=== PATIENT | male | born 1945 | race Caucasian/White ===

== ENCOUNTER 2022-06-18 07:50 | Day surgery (SDC) | payer OTHER ==
[2022-06-15 14:28] VITALS: BMI 28.5
[~2022-06-18 07:50] MED LIST: LACTATED RINGERS 1,000 ML IV SCH
[2022-06-18] MEDS ORDERED: LACTATED RINGERS 1,000 ML IV ONE (08:07)
[2022-06-18 08:16] VITALS: TEMP 97.8
[2022-06-18] MEDS ORDERED: LIDOCAINE 2% INJ 20 MG/ML (2 ML VIAL) ONE (08:27)
[2022-06-18] MEDS ORDERED: PROPOFOL 10 MG/ML 20 ML VIAL IV ONE (08:27)
--- NOTE | 2022-06-18 08:43 | P.PCN ---
Date of Procedure: 06/18/22 Procedure(s) Performed: BRIEF HISTORY: Patient is a 77-year-old pleasant white a scheduled for an elective colonoscopy as a part of screening for colon cancer and family history of colon cancer. Father was diagnosed with colon cancer at age 40. PROCEDURE PERFORMED: Colonoscopy with biopsy. PREOPERATIVE DIAGNOSIS: Screening for colon cancer and family history of colon cancer with biopsy. IV sedation per Anesthesia. PROCEDURE: After informed consent was obtained, the patient, was brought into the endoscopy unit. IV sedation was administered by Anesthesia under continuous monitoring. Digital rectal examination was normal. Initially the Olympus CF-160 flexible video colonoscope was then inserted in the rectum, gradually advanced into the cecum without any difficulty. Careful examination was performed as the scope was gradually being withdrawn. Ileocecal valve and the appendiceal orifice were visualized and appeared normal. Prep was excellent. Mucosa of the cecum, ascending colon, transverse colon, appeared normal. The descending colon there was a 4 mm polyp removed by cold biopsy. Rest of the descending colon, sigmoid colon, and rectum appeared normal. In the proximal rectum there was another 5 mm polyp that was removed by cold biopsy. Retroflexion was performed in the rectum and no lesions were seen. The patient tolerated the procedure well. IMPRESSION: 4 mm descending colon polyp status post cold biopsy 5 mm proximal rectal polyp status post cold biopsy RECOMMENDATIONS: Findings of this examination were discussed with the patient as his family. He was advised to follow with the biopsy results. Recommend repeat colonoscopy in 5 years from now because of the strong family history of colon cancer.
[2022-06-18 09:04] VITALS: BP 110/71; PULSE 100; RESP 18
== END 2022-06-18 09:15 | disposition home or self-care (01) ==
LOC: ORWHC2ENDO 07:50
PROVIDERS: ATTEND Internal Medicine Gastroenterology
DX: Z12.11 Encounter for screening for malignant neoplasm of colon (principal); D12.4 Benign neoplasm of descending colon; K62.1 Rectal polyp; I10 Essential (primary) hypertension; E78.5 Hyperlipidemia, unspecified; F17.210 Nicotine dependence, cigarettes, uncomplicated; Z80.0 Family history of malignant neoplasm of digestive organs; Z88.0 Allergy status to penicillin; Z79.82 Long term (current) use of aspirin; Z79.899 Other long term (current) drug therapy; Z86.73 Personal history of transient ischemic attack (TIA), and cerebral infarction without residual deficits
CPT/HCPCS: 88305; 45380; J2704; J2001

== ENCOUNTER → 2022-11-19 | Outpatient (CLI) | payer OTHER ==
--- NOTE | 2022-11-19 09:09 | US ---
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 FINDINGS: EXAM MEASUREMENTS: Liver Length: 16.2 cm Gallbladder Wall: 0.2 cm CBD: 0.4 cm Right Kidney: 8.5 x 4.4 x 5.0 cm VETERANS SERVICE REPRESENTATIVE NOTES:bowel gas obscures imaging Pancreas: wnl Liver: wnl Gallbladder: fundal fold Evidence for sonographic Jordan's sign: no CBD: wnl Right Kidney: smaller in size IMPRESSION: Diminutive right kidney. Otherwise unremarkable study.
[2022-11-19 13:13] LABS: Basophils # (A) 0.07 X 10*3/uL (0.00-0.10); Basophils % (A) 0.9 %; Eosinophils # (A) 0.07 X 10*3/uL (0.04-0.35); Eosinophils % (A) 0.9 %; HGB 13.6 d/dL (13.0-17.0); Lymphocytes # (A) 1.67 X 10*3/uL (0.90-5.00); Lymphocytes % (A) 22.6 %; MCH 29.2 pg (27.0-32.0); MCHC 31.6 d/dL (32.0-37.0); MCV 92.5 FL (80.0-97.0); Mean Platelet Volume 10.4 FL (9.5-12.2); Monocytes % (A) 9.5 %; NRBC Per 100 WBC 0 X 10*3/uL (0.00-0.01); Neutrophils # (A) 4.86 X 10*3/uL (1.80-7.70); Neutrophils % (A) 65.8 %; Platelet Count 204 X 10*3/uL (140-440); RBC 4.65 X 10*6/uL (4.40-5.60); RDW 14.6 % (11.5-14.5); WBC 7.39 X 10*3/uL (4.50-10.00)
[2022-11-19 14:33] LABS: Hepatitis B Core IgM Nonreactive; Hepatitis B Surface Antigen Nonreactive; Hepatitis C IgG Antibody Nonreactive
[2022-11-19 14:40] LABS: ALT 29 U/L (10-49); AST 24 U/L (14-35); Albumin 4.5 d/dL (3.8-4.9); Alkaline Phosphatase 96 U/L (41-126); BUN/Creat Ratio 15.43 Ratio (12.00-20.00); Blood Urea Nitrogen 21.6 mg/dL (9.0-27.0); Calcium 9.2 mg/dL (8.7-10.3); Carbon Dioxide 26.6 mmol/L (21.6-31.8); Chloride 104 mmol/L (96-109); Glucose 114 mg/dL (70-110); Potassium 4.7 mmol/L (3.5-5.5); Sodium 141 mmol/L (135-145); Total Bilirubin 0.4 mg/dL (0.3-1.2); Total Protein 7.5 d/dL (6.2-8.2)
[2022-11-22 08:08] LABS: HCV Qualitative Result Not detected (Not detected); HCV Quant Log <1.08 (<1.08); HCV Quantitative Result <12 IU/mL (<12)
== END | disposition home or self-care (01) ==
LOC: RADUSWWP 07:41
PROVIDERS: ATTEND Family Medicine
DX: B18.2 Chronic viral hepatitis C (principal); N27.0 Small kidney, unilateral
CPT/HCPCS: 76705; 80053; 82105; 85025; 86704; 86705; 86803; 87340; 87522

== ENCOUNTER → 2023-04-30 | Outpatient (CLI) | payer OTHER | END | disposition home or self-care (01) | LOC: RADMRIMAIN 08:14 | PROVIDERS: ATTEND Urology | DX: Z53.9 Procedure and treatment not carried out, unspecified reason (principal) ==

== ENCOUNTER → 2023-07-02 | Outpatient (CLI) | payer OTHER ==
--- NOTE | 2023-07-02 10:05 | CTL ---
EXAMINATION TYPE: CT Low Dose Lung DATE OF EXAM ORDERED: 07/02/2023 HISTORY: Lung cancer screening CT DLP: 124.[address] CTDI: 3.2 mGy Automated exposure control for dose reduction was used. COMPARISON: None TECHNIQUE: Low dose computed tomography scan was performed through the chest at 1 mm thick sections a nd reconstructed images in multiple planes at 1 mm and [address] DIAGNOSTIC QUALITY: Satisfactory FINDINGS: There are moderate emphysematous changes with an upper lobe predominance. There are a few scattered micronodules in the right lung. There is a small focal area of chronic pleural parenchymal scarring in the right lung base laterally. There is no abnormal airspace/consolidative density. There is no pleural effusion or pneumothorax. The great vessels chest is normal and is no mediastinal, hilar or axillary adenopathy. Limited scanning through the upper abdomen reveals no gross abnormality. The osseous structures are intact. IMPRESSION: 1. Lung RADS category 2 benign. Continue routine screening yearly intervals. 2. Moderate emphysematous changes. 3. No acute cardiopulmonary disease.
== END | disposition home or self-care (01) ==
LOC: RADCTMAIN 07:28
PROVIDERS: ATTEND Internal Medicine Pulmonary Disease
DX: Z12.2 Encounter for screening for malignant neoplasm of respiratory organs (principal); J43.9 Emphysema, unspecified; F17.210 Nicotine dependence, cigarettes, uncomplicated
CPT/HCPCS: 71271

== ENCOUNTER → 2023-09-14 | Outpatient (CLI) | payer OTHER ==
[2023-09-14 15:33] LABS: Basophils # (A) 0.07 X 10*3/uL (0.00-0.10); Basophils % (A) 0.9 %; Eosinophils # (A) 0.03 X 10*3/uL (0.04-0.35); Eosinophils % (A) 0.4 %; HCT 47.4 % (39.6-50.0); HGB 15.4 g/dL (13.0-17.0); Lymphocytes # (A) 1.61 X 10*3/uL (0.90-5.00); Lymphocytes % (A) 21.4 %; MCH 29.8 pg (27.0-32.0); MCHC 32.5 g/dL (32.0-37.0); MCV 91.9 FL (80.0-97.0); Mean Platelet Volume 10.3 FL (9.5-12.2); NRBC Per 100 WBC 0 X 10*3/uL (0.00-0.01); Neutrophils # (A) 5.18 X 10*3/uL (1.80-7.70); Neutrophils % (A) 68.9 %; Platelet Count 216 X 10*3/uL (140-440); RBC 5.16 X 10*6/uL (4.40-5.60); RDW 14.4 % (11.5-14.5); WBC 7.52 X 10*3/uL (4.50-10.00)
[2023-09-14 15:56] LABS: BUN/Creat Ratio 17.46 Ratio (12.00-20.00); Blood Urea Nitrogen 22.7 mg/dL (9.0-27.0); Calcium 9.6 mg/dL (8.7-10.3); Carbon Dioxide 26.3 mmol/L (21.6-31.8); Chloride 102 mmol/L (96-109); Glucose 119 mg/dL (70-110); Potassium 5.2 mmol/L (3.5-5.5); Sodium 140 mmol/L (135-145)
[2023-09-14 16:10] LABS: Appearance,Urine Clear (Clear); Bilirubin,Urine Negative (Negative); Blood,Urine Negative (Negative); Color,Urine Yellow (Yellow); Ketones,Urine Negative (Negative); Nitrite,Urine Negative (Negative); Specific Gravity,Urine 1.013 (1.001-1.030); Urobilinogen,Urine 0.2 E.U./DL
[2023-09-14 16:16] LABS: Bacteria,Urine None Seen (None Seen)
== END | disposition home or self-care (01) ==
LOC: LABPAT 10:00
PROVIDERS: ATTEND Urology
DX: Z01.812 Encounter for preprocedural laboratory examination (principal); R97.20 Elevated prostate specific antigen [PSA]
CPT/HCPCS: 36415; 80048; 81001; 85025; 87086

== ENCOUNTER 2023-09-22 09:22 | Day surgery (SDC) | payer OTHER ==
--- NOTE | 2023-09-22 08:19 | P.HPIHPCON ---
History of Present Illness H&P Date: 09/22/23 Chief Complaint: elevated PSA This is a 78 yo male with hx of elevated PSA 7.02, his prostate exam is WNL. Underwent attempted MRI but was unable to tolerate due to claustrophobia. Discussed with him the alternative of doing a transrectal biopsy, he refused to undergo transrectal biopsy in the office and preferred to have it done under sedation. Discussed with him the procedure in detail. Aware the risk which includes but not limited to to bleeding, infection, sepsis. Consent for Procedure: I have explained the operation/procedure to the patient, including the risks, benefits, side effects, alternative therapies (including not receiving the proposed treatment or service), the likelihood of the patient achieving his/her goals, and potential recuperation problems for the procedure/sedation/analgesia, as well as any blood products, if indicated. I also explained to the patient the risks, benefits and side effects of the alternatives, as well as the risks related to not receiving the proposed procedure, care, treatment, or services. Past Medical History Past Medical History: Cancer, CVA/TIA, Hyperlipidemia, Hypertension Additional Past Medical History / Comment(s): CVA 2016, no residual effects, Hx skin cancer on upper lip - removed, pt. states he has a new physician & that's why he's having transrectal biopsy History of Any Multi-Drug Resistant Organisms: None Reported Additional Past Surgical History / Comment(s): skin cancer removed from upper lip Past Anesthesia/Blood Transfusion Reactions: No Reported Reaction Smoking Status: Current every day smoker - Past Family History Father Family Medical History: Cancer Additional Family Medical History / Comment(s): Colon cancer. Medications and Allergies Home Medications Medication Instructions Recorded Confirmed Type Multivitamin [Men's Multi-Vitamin] 1 each PO DAILY 04/08/14 09/21/23 History Aspirin EC [Ecotrin Low Dose] 81 mg PO DAILY tablet. 04/10/14 09/21/23 Rx Atorvastatin Calcium [Lipitor] 5 mg PO HS 06/15/22 09/21/23 History Bp Pill (Name & Dose Unknown) 1 tab PO QAM 06/15/22 09/21/23 History Ascorbic Acid [Vitamin C] 1 tab PO DAILY 09/21/23 09/21/23 History Ciprofloxacin HCl 500 mg PO BID 09/21/23 09/21/23 History [place]-3/Dha/Epa/Fish Oil [[place]-3 1 tab PO DAILY 09/21/23 09/21/23 History Fish Oil 1,000 mg Sfgl] Allergies Allergy/AdvReac Type Severity Reaction Status Date / Time Penicillins Allergy Rash/Hives Verified 09/21/23 08:34 Surgical - Exam - General no distress, no pain - ENT normal nares, normal mucosa - Respiratory normal expansion, normal respiratory effort Assessment and Plan Assessment: OR for transrectal biopsy of the prostate
[~2023-09-22 09:22] MED LIST changes: +HYDROmorphone 0.5 MG/0.5 ML SYRINGE IVP PRN; -LACTATED RINGERS 1,000 ML IV SCH; +LIDOCAINE 1% (10MG/ML) FOR IV START INTRADERMA PRN; +droPERidol 5 MG/2 ML VIAL IVP ONE
[2023-09-22] MEDS: IV FLUID CONTINUATION 1,000 ML IV ONE (10:52)
[2023-09-22 11:04] VITALS: TEMP 97.1
[2023-09-22] MEDS: LACTATED RINGERS 1,000 ML IV SCH (11:15)
[2023-09-22] MEDS: MIDAZOLAM 2 MG/2 ML VIAL IVP ONE (11:30)
[2023-09-22] MEDS: DEXAMETHASONE SOD PHOSPHATE 4 MG/ML 1 ML VIAL IV ONE (11:30)
[2023-09-22] MEDS: ONDANSETRON 4 MG/2 ML VIAL IVP ONE (11:32)
[2023-09-22] MEDS: GENTAMICIN 40 MG/ML 2 ML VIAL IM PRN (12:00)
[2023-09-22] MEDS: MIDAZOLAM 2 MG/2 ML VIAL IV ONE (12:53)
[2023-09-22] MEDS ORDERED: PROPOFOL 10 MG/ML 20 ML VIAL IV ONE (13:07)
--- NOTE | 2023-09-22 13:26 | P.OP ---
Date of Procedure: 09/22/23 Preoperative Diagnosis: Elevated PSA level Postoperative Diagnosis: Same Procedure(s) Performed: Transrectal ultrasound of the prostate with prostate biopsies Anesthesia: MAC Surgeon: Markus Heck Estimated Blood Loss (ml): 5 IV fluids (ml): 100 Condition: stable Disposition: PACU Indications for Procedure: This is a 78 yo male with hx of elevated PSA 7.02, his prostate exam is WNL. Underwent attempted MRI but was unable to tolerate due to claustrophobia. Discussed with him the alternative of doing a transrectal biopsy, he refused to undergo transrectal biopsy in the office and preferred to have it done under sedation. Discussed with him the procedure in detail. Aware the risk which includes but not limited to to bleeding, infection, sepsis. Operative Findings: 117 cc volume. No suspicious lesions seen. Description of Procedure: The patient was taken to the operating room and placed in the left lateral decubitus position. ROGER revealed the prostate to be enlarged with smooth. The [employer] transrectal ultrasound probe was placed intrarectally. The prostate was imaged in both the axial and sagittal planes, revealing a prostate volume of 117 mL. The central zone appeared normal. The transitional zone showed evidence of BPH. The peripheral zone appeared normal. Using the Biopty gun, 12 biopsies of the peripheral zone were obtained utilizing a standard template. Once the procedure was completed, the ultrasound probe was removed and the procedure was terminated. The patient tolerated the procedure well was taken to the recovery room stable condition.
[2023-09-22 13:43] VITALS: RESP 16
[2023-09-22 13:48] VITALS: BP 142/86; PULSE 81
== END 2023-09-22 14:03 | disposition home or self-care (01) ==
LOC: OR 09:22
PROVIDERS: ATTEND Urology
DX: E78.5 Hyperlipidemia, unspecified (principal); I10 Essential (primary) hypertension; F17.210 Nicotine dependence, cigarettes, uncomplicated; Z86.73 Personal history of transient ischemic attack (TIA), and cerebral infarction without residual deficits; Z85.828 Personal history of other malignant neoplasm of skin; Z80.0 Family history of malignant neoplasm of digestive organs; Z79.82 Long term (current) use of aspirin; Z79.02 Long term (current) use of antithrombotics/antiplatelets; Z88.0 Allergy status to penicillin
CPT/HCPCS: 55700; 76872; 88305; J2250; J1580; J1100; J2405; J2704

== ENCOUNTER → 2023-12-14 | Outpatient (CLI) | payer OTHER ==
[2023-12-14 11:22] VITALS: BP 159/73; PULSE 50; RESP 16; TEMP 97.6
--- NOTE | 2023-12-14 12:48 | P.SLEEP ---
History of Present Illness DATE: 12/14/2023 CONSULTATION/NEW PATIENT EVALUATION HISTORY OF PRESENT ILLNESS/SLEEP-WAKE EVALUATION: 78-year-old gentleman had been evaluated in the sleep center for possible obstructive sleep apnea hypopnea syndrome. SLEEP SCHEDULE: Usually sleep schedule from 10:30 PM to 6 AM. FALLING ASLEEP: Sometimes patient has difficulties with falling asleep, although no TV in bedroom. DURING SLEEP: Patient usually sleeps on the side position and wakes up from sleep 3 times with nocturia. Positive history of nightmares during the sleep. Positive history of sweating. No history of hypnogogical hallucinations, sleep paralysis, or cataplexy. DURING THE DAY/WAKE STATE: In the morning patient wake up tired, has difficulties to pay attention, falling asleep during the day. Positive history of problems with memory, concentration, irritability, depression and anxiety. Positive history of claustrophobia. [place] sleepiness scale is increased significantly to 15 . Patient takes nap at 2 PM. PAST MEDICAL HISTORY: Hypertension, hyperlipidemia. PAST SURGICAL HISTORY: Please see below. MEDICATIONS: Please see below. SOCIAL HISTORY: Please see below. FAMILY HISTORY: Cancer. REVIEW OF SYSTEMS: Multiple awakenings from sleep, sleepiness during the day. No fevers. No double vision. No recent chest pain. No shortness of breath. No abdominal pain. No bleeding episodes. No blood in urine. No seizure episodes. PHYSICAL EXAMINATION: GENERAL: A pleasant patient without any distress. VITAL SIGNS: Please see below, weight 197 pounds, BMI 28.6. HEENT: PERRLA, EOMI. Evaluation of oropharynx showed tongue protrudes midline, low position of soft palate Mallampati 4. NECK: Supple. No JVD. Thyroid is not palpable. 16.5 inches in circumference. LUNGS: Clear to percussion and to auscultation. Good air exchange. No wheezing or rhonchi. HEART: S1, S2 regular. No murmurs, gallops or rubs. ABDOMEN: Soft and nontender. Bowel sounds are present. No organomegaly appreciated. EXTREMITIES: No clubbing or cyanosis. SENIOR MEDIA DIRECTOR: Awake, alert, and oriented x3. Cranial nerves 2 to 7 intact. There is no fasciculation or atrophy noted. No focal deficits observed. ASSESSMENT: 1. Multiple awakenings from sleep, extremely low position of soft palate Mallampati 4, sleepiness with [place] Sleepiness Scale significantly increased to 15. Obstructive sleep apnea hypopnea syndrome. 2. Hypertension. 3. Hyperlipidemia. 4. Nightmares. 5 history of episodes of depression and anxiety. PLAN: 1. Polysomnography for evaluation of patient's breathing during sleep. 2. Following plan after reading sleep study. 3. Preferable position during sleep on the side. 4. No driving if patient feels any sleepiness. Patient is aware of civil and criminal liability for unsafe driving. 5. Sleep hygiene with regular sleep time for at least 7.5-8 hours. 6. Watching weight. Thank you very much for referring this patient for consultation. Sincerely, Yohan Keane MD, PhD, FAASM. Diplomat of [place] [employer], Sleep Medicine Board by [place] [employer] [place] [employer] Applications System Analyst of [facility] [place] cc: [facility], Clinic Past Medical History Past Medical History: Cancer, CVA/TIA, Hyperlipidemia, Hypertension Additional Past Medical History / Comment(s): Hx CVA 6 yrs ago, no residual effects. Hx skin cancer on top lip. History of Any Multi-Drug Resistant Organisms: None Reported Past Surgical History: Prostate Surgery Additional Past Surgical History / Comment(s): Skin cancer removed from upper lip. prostate, Colonoscopy Past Anesthesia/Blood Transfusion Reactions: No Reported Reaction Past Psychological History: No Psychological Hx Reported Smoking Status: Current every day smoker Past Alcohol Use History: Occasional Additional Past Alcohol Use History / Comment(s): Smokes 1 ppd, smoker since his teens. Past Drug Use History: Marijuana Additional Drug Use History / Comment(s): Marijuana use once a month. Aware no use 24 hrs prior to procedure. - Past Family History Father Family Medical History: Cancer, Hypertension Additional Family Medical History / Comment(s): Colon cancer. Mother History Unknown: Yes Medications and Allergies Home Medications Medication Instructions Recorded Confirmed Type Multivitamin [Men's Multi-Vitamin] 1 each PO DAILY 04/08/14 12/14/23 History Aspirin EC [Ecotrin Low Dose] 81 mg PO DAILY tablet. 04/10/14 12/14/23 Rx Atorvastatin Calcium [Lipitor] 5 mg PO HS 06/15/22 12/14/23 History Bp Pill (Name & Dose Unknown) 1 tab PO QAM 06/15/22 09/22/23 History Ascorbic Acid [Vitamin C] 1 tab PO DAILY 09/21/23 12/14/23 History Ciprofloxacin HCl 500 mg PO BID 09/21/23 09/22/23 History [place]-3/Dha/Epa/Fish Oil [[place]-3 1 tab PO DAILY 09/21/23 12/14/23 History Fish Oil 1,000 mg Sfgl] lisinopriL [Zestril] 20 mg PO DAILY 12/14/23 12/14/23 History Allergies Allergy/AdvReac Type Severity Reaction Status Date / Time Penicillins Allergy Rash/Hives Verified 09/22/23 10:41 Physical Exam Vitals: Vital Signs Temp Pulse Resp BP Pulse Ox 12/14/23 11:21 97.6 F 50 L 16 159/73 97 Intake and Output 12/13/23 12/14/23 12/14/23 22:59 06:59 14:59 Other: Weight 89.358 kg Sleep Note - Sleep Data ESS Total: 15 - Sleep Note Sleep Note: Temperature: 97.6 F Pulse Rate: 50 Respiratory Rate: 16 Blood Pressure: 159/73 SpO2: 97 Height: 5 ft 9.5 in Weight: 89.358 kg BMI: Neck Circumference: 16.5
== END ==
LOC: 3 N SLEEP 11:05
PROVIDERS: ATTEND Internal Medicine
CPT/HCPCS: 99211

== ENCOUNTER 2024-01-09 19:09 | Outpatient (CLI) | payer OTHER ==
--- NOTE | 2024-01-18 15:43 | P.PCN ---
Description of Procedure: POLYSOMNOGRAPHY REPORT PROCEDURE(S)/DATE(S): Polysomnography 01/09/2024 CLINICAL: Patient has been seen in the sleep center for evaluation of obstructive sleep apnea-hypopnea syndrome. Please see my consultation. Sleep study has been done for evaluation of patient breathing during the sleep. PROCEDURE: The standard montage for clinical polysomnography included the electroencephalogram, the electrooculogram, the mentalis surface electromyography and Lead II cardiography. The respiratory battery consisted of measurements of nasal/buccal air flow, pressure transducer measurements from nose, thoracic and/or abdominal effort and intercostal surface electromyography. Video monitoring has been done to check for any parasomnia events. Nocturnal oxyhemoglobin saturations were obtained by finger oximetry. Step-sutton titration with positive airway pressure was utilized to control the respiratory events, if necessary. RESULTS: During the diagnostic sleep study sleep efficiency was significantly short 60.3%. Latency to sleep onset was normal 24.0 min. Sleep architecture sh owed stage NI was increased to 11.6%, Delta sleep was short 1.3%, REM sleep was short 15.4%. Respiratory channel showed 0 obstructive apneas, 0 mixed apneas, 0 central apneas, 28 hypopneas with lowest oxygen level 83%. Total apnea hypopnea index was 7.5. Heart rate was in the range between 62 and 86, average 77. EMG showed 87.8 periodic limb movements per hour with 0 micro-arousals per hour. IMPRESSIONS: 1. Mild obstructive sleep apnea hypopnea syndrome. 2. Severe periodic limb movements have been documented. 3. Hypertension Please see other impressions from consultation PLAN: 1. The patient will be started on AutoPAP treatment for correction of respiratory abnormalities during the sleep. 2. Watching weight. 3. Sleep hygiene with regular time in bed for at least 7-1/2 hours. 4. No driving if feeling sleepiness. 5. Please check iron profile including ferritin level. Low level of iron may increase the risk for periodic limb movements. 7. I will see patient for follow-up visit to evaluate clinical response on treatment with CPAP, check compliance with treatment and [place] adjustments related to mask fitting pressure and humidification. 8. If clinically indicated we may consider pharmacotherapy for periodic limb movements. Thank you very much for allowing me to participate in the management of your patient. Sincerely, Yohan Keane MD, PhD, FAASM. Diplomat of [place] [employer], Sleep Medicine Board by [place] [employer] Mechanical Engineering Manager of [facility] [place] cc: [facility]
== END 2024-01-10 04:17 | disposition home or self-care (01) ==
LOC: 3 N SLEEP 19:09
PROVIDERS: ATTEND Internal Medicine
DX: G47.33 Obstructive sleep apnea (adult) (pediatric) (principal); G47.61 Periodic limb movement disorder; I10 Essential (primary) hypertension; F17.210 Nicotine dependence, cigarettes, uncomplicated; Z79.899 Other long term (current) drug therapy; Z88.0 Allergy status to penicillin
CPT/HCPCS: 95810